=== PATIENT | female | born 1975 | race Caucasian/White ===

== ENCOUNTER 2016-10-06 10:47 | Inpatient (IN) | payer BC, OTHER ==
[2016-10-06 11:46] LABS: Appearance,Urine Cloudy (Clear); Bacteria,Urine Rare /hpf; Basophils % (A) 0 %; Bilirubin,Urine Negative (Negative); CHCM 34.1; Calcium Oxalate Crystals,Urine Many /hpf; Eosinophils # (A) 0.2 k/uL (0-0.7); Eosinophils % (A) 1 %; Glucose,Urine (UA) Negative (Negative); HCT 34.1 % (34.0-46.0); HDW 2.78; HGB 11.5 gm/dL (11.4-16.0); Ketones,Urine Negative (Negative); Leukocyte Esterase,Urine Moderate (Negative); Luc # (Auto) 0.19; Luc % (Auto) 2; Lymphocytes # (A) 2.3 k/uL (1.0-4.8); Lymphocytes % (A) 18 %; MCH 29.9 pg (25.0-35.0); MCHC 33.8 g/dL (31.0-37.0); MCV 88.5 fL (80.0-100.0); Mean Platelet Volume 8.4; Monocytes # (A) 0.8 k/uL (0-1.0); Monocytes % (A) 6 %; Mucus,Urine Rare /hpf; Neutrophils # (A) 9.1 k/uL (1.3-7.7); Neutrophils % (A) 72 %; Nitrite,Urine Negative (Negative); Particle Count 7734; Protein,Urine Trace (Negative); RBC 3.86 m/uL (3.80-5.40); RDW 13.4 % (11.5-15.5); Specific Gravity,Urine 1.012 (1.001-1.035); Squamous Epithelial Cell,Urine 22 /hpf (0-4); UA Billing (MACRO vs. MICRO) MICRO; Urobilinogen,Urine <2.0 mg/dL (<2.0); WBC 12.6 k/uL (3.8-10.6); WBC (Perox) 13.29; WBC,Urine 16 /hpf (0-5)
[2016-10-06 11:52] LABS: Partial Thromboplastin Time 23.7 sec (22.0-30.0); Prothrombin Time 9.9 sec (9.0-12.0)
[2016-10-06 12:01] LABS: ALT 18 U/L (9-52); AST 22 U/L (14-36); LDH 407 U/L (313-618); Non-African American GFR(MDRD) >60 (>60 ml/min/1.73 sqM); Uric Acid 6.2 mg/dL (3.7-7.4)
--- NOTE | 2016-10-06 12:28 | P.HPOB ---
History of Present Illness H&P Date: 10/06/16 Chief Complaint: Hypertension This patient is a pleasant 40-year-old 5 para 4 female estimated date of confinement 10/27/2016 estimated gestational age 37 weeks who presents for evaluation of hypertension. Patient's history is such that she was in the office yesterday afternoon and saw my nurse and had elevated blood pressure 150/ 90. I asked my nurse to call the patient's morning to come in and have this further evaluated. Patient's also had 1+ edema. Blood pressure here's ranges from 130 to 160/70 to 90s. Patient has been seen by maternal medicine throughout the due to a history of previous baby with hydrocephalus. Anatomy ultrasounds this has been normal. Review of Systems Constitutional: Denies chills, Denies fever Ears, nose, mouth and throat: Denies headache, Denies sore throat Cardiovascular: Denies chest pain, Denies shortness of breath Respiratory: Denies cough Gastrointestinal: Reports heartburn Genitourinary: Reports Menstruation: Reports amenorrhea Musculoskeletal: Denies myalgias Musculoskeletal: bilateral: foot swelling Past Medical History Past Medical History: No Reported History History of Any Multi-Drug Resistant Organisms: None Reported Past Surgical History: Section Past Anesthesia/Blood Transfusion Reactions: No Reported Reaction Past Psychological History: No Psychological Hx Reported Smoking Status: Current every day smoker Past Drug Use History: None Reported Medications and Allergies Home Medications Medication Instructions Recorded Confirmed Type Pnv with Ca,No.72/Iron/FA [Pnv 1 tab PO DAILY 06/13/15 06/13/15 History Plus Multivit Tab] Allergies Allergy/AdvReac Type Severity Reaction Status Date / Time No Known Allergies Allergy Verified 10/06/16 11:00 Exam - Vital Signs Vital signs: Intake and Output 10/05/16 10/06/16 10/06/16 22:59 06:59 14:59 Other: Weight 95.708 kg Patient Weight 10/07/16 06:59 Weight 95.708 kg - OBG Physical Exam Abdomen: bowel sounds normal, no diffuse tenderness, no bruit present, no guarding noted, no hepatomegaly, no splenomegaly, no mass Vulva: both: normal Vagina: normal moisture, no discharge Cervix: Cervix is closed and thick Uterus: enlarged Results blood work shows she is oh positive, rubella immune, RPR nonreactive, hepatitis B negative, group B strep was negative other she does have a history of a positive in previous . Ultrasounds per [facility] were normal. Result Diagrams: 10/06/16 11:30 10/06/16 11:30 Abnormal Lab Results - Last 24 Hours (Table) 10/06/16 10/06/16 Range/Units 11:30 11:30 WBC 12.6 H (3.8-10.6) k/uL Neutrophils # 9.1 H (1.3-7.7) k/uL Urine Appearance Cloudy H (Clear) Urine Protein Trace H (Negative) Ur Leukocyte Esterase Moderate H (Negative) Urine WBC 16 H (0-5) /hpf Ur Squamous Epith Cells 22 H (0-4) /hpf Calcium Oxalate Crystal Many H (None) /hpf Urine Bacteria Rare H (None) /hpf Urine Mucus Rare H (None) /hpf Assessment and Plan (1) Third trimester Narrative/Plan: This is a pleasant 40-year-old 5 para 4 female 37-0/7 weeks gestation with gestational hypertension. Patient has had 2 blood pressures greater than 4 hours apart that are criteria for delivery and I have indicated this to her and her . Patient has an unfavorable cervix and is not inducible at this time. I recommended the patient proceed with delivery at this time however she is hesitant and at this time will be admitted for observation and she will make a final decision. If we do proceed with delivery will proceed with repeat due to a noninducible cervix and previous section. Patient understands that if she does elect to go home that unfortunately due to blood pressure concerns she could have a poor outcome. She is agreeable to admission at this time for observation and serial blood pressures. Status: Acute (2) Gestational hypertension Status: Acute (3) Previous delivery affecting Status: Acute (4) Elderly multigravida in third trimester Status: Acute
[2016-10-06] MEDS ORDERED: CITRIC ACID-SODIUM CITRATE 15 ML CUP PO ONE (14:25)
[2016-10-06] MEDS ORDERED: LACTATED RINGERS 1,000 ML IV ONE (14:25)
[2016-10-06] MEDS ORDERED: LACTATED RINGERS 1,000 ML IV SCH (14:30)
[2016-10-06] MEDS ORDERED: ceFAZolin 2 GM in SODIUM CHLORIDE 0.9% 100 ML IVPB ONE (16:30)
[2016-10-06] MEDS ORDERED: diphenhydrAMINE 50 MG/ML 1 ML VIAL ONE (16:36)
[2016-10-06] MEDS ORDERED: OXYTOCIN 10 UNIT/ML 1 ML VIAL IM ONE (16:36)
[2016-10-06] MEDS ORDERED: MORPHINE SULFATE (PF) 0.3 MG/0.3 ML SYR ONE (16:36)
[2016-10-06] MEDS ORDERED: PHENYLEPHRINE-0.9% NACL SYG 1 MG/10 ML SYRINGE ONE (16:36)
[2016-10-06] MEDS ORDERED: KETOROLAC 30 MG/ML 1 ML VIAL ONE (16:36)
[2016-10-06] MEDS ORDERED: ONDANSETRON 4 MG/2 ML VIAL ONE (16:36)
[2016-10-06 17:08] VITALS: RESP 16; BMI 42.6
[2016-10-06] MEDS ORDERED: ACETAMINOPHEN TAB 325 MG TAB PO PRN (17:20)
[2016-10-06] MEDS ORDERED: diphenhydrAMINE 25 MG CAP PO PRN (17:20)
[2016-10-06] MEDS ORDERED: METOCLOPRAMIDE 5 MG/ML 2 ML VIAL IVP PRN (17:20)
[2016-10-06] MEDS ORDERED: NALOXONE 0.4 MG/ML 1 ML VIAL IV PRN (17:20)
[2016-10-06] MEDS ORDERED: ONDANSETRON 4 MG/2 ML VIAL IVP PRN (17:20)
[2016-10-06] MEDS ORDERED: Acetaminophen-Codeine 300-30mg TAB PO PRN ×2 (17:20)
[2016-10-06] MEDS ORDERED: diphenhydrAMINE 50 MG/ML 1 ML VIAL IVP PRN (17:20)
[2016-10-06] MEDS ORDERED: ZOLPIDEM 5 MG TAB PO PRN (17:20)
[2016-10-06] MEDS ORDERED: SIMETHICONE 80 MG CHEWABLE PO PRN (17:20)
--- NOTE | 2016-10-06 17:29 | P.OP ---
Date of Procedure: 10/06/16 Preoperative Diagnosis: #1: 37 weeks intrauterine . #2: Gestational hypertension. #3: Previous section and unfavorable cervix Postoperative Diagnosis: Same Procedure(s) Performed: Repeat low transverse section. Anesthesia: spinal Surgeon: Anil Blair Time Motion Analyst #1: Bety Gaston Estimated Blood Loss (ml): 600 Pathology: other (Placenta) Condition: stable Disposition: floor Indications for Procedure: Please see dictated H&P for intimate details of this patient's admission. In brief summary this is a pleasant 40-year-old 5 para 4 female 37-0/7 weeks gestation who is admitted to labor and delivery for evaluation of hypertension. Patient's felt to have gestational hypertension with criteria for delivery. Patient and I discussed route of delivery and given the fact that her cervix is closed and previous section elected proceed with section for delivery at this time. Patient does understand the surgery and risks including risks of infection, bleeding, possible injury bowel , bladder, vessels, and other organs. All the patient's questions are answered and a written consent is obtained. Operative Findings: Is a vigorous viable female Apgars 9 and 9 delivery time was 1649 hrs. Infant has spontaneous respirations and good cry and grossly appeared normal. Nuchal cord 1. The left side of the lower uterine segment was thin. Description of Procedure: This patient has a Castellano catheter placed to straight drain. She subsequently taken to the operating room and sat up and spinal anesthetic is administered without incident. With an adequate level of anesthesia she has abdominal prep and drape. Previous Pfannenstiel incision is then incised. A second scalpel is taken down the fascia the fascia scored with a knife. Fascial incision extended bilaterally using the Stahl scissors. Fascia is dissected off the rectus muscles sharply. Rectus muscles are peritoneum identified and entered sharply. Peritoneal incision extended superior and inferior without difficulty. Bladder blade is then placed. Bladder peritoneum was taken off the lower uterine segment. Note the lower left side is quite thin for previous section. Using a scalpel I make a low transverse uterine incision. Using a hemostat I into the uterine cavity bluntly and there is loss of clear fluid. This infant's head is then guided through the incision with fundal pressure delivered. We bulb suction the mouth and nose. There is a nuchal cord which is reduced. Then have delivery anterior posterior shoulder and the rest of this infant's body. This is a vigorous viable female and Apgars are 9 and 9 delivery time was 1649 hrs. After delivery of the infant the umbilical cords doubly clamped and cut appears to be trivascular. The placenta is then manually extracted intact. Uterus is then externalized excess membranes were removed and the uterine cavity appears clear of all debris. The uterus is then closed using 0 Vicryl running fashion 2 layers good hemostasis is noted. Excess fluid is removed from the abdomen and pelvis. Uterus tubes and ovaries appear normal for term gestation. Uterus placed back into the abdomen. Parietal peritoneum was then closed using 0 Vicryl running fashion. Rectus muscle reapproximate 0 Vicryl interrupted fashion. Fascia is then closed using 0 PDS. Fascial incision is intact and hemostatic. Subcutaneous tissues and closed using a 3-0 Vicryl. Skin is and closed using pili. All counts are correct 3. There are no complications. All counts are correct 3.
[2016-10-06] MEDS: LACTATED RINGERS 1,000 ML IV SCH (17:49)
[2016-10-06] MEDS ORDERED: KETOROLAC 30 MG/ML 1 ML VIAL IVP PRN (18:00)
[2016-10-07] MEDS: OXYTOCIN 30 UNITS/500 ML NS 30 UNIT in SALINE 1 500ML.BAG IV SCH ×2 (00:07→00:08)
[2016-10-07] MEDS: SENNOSIDES-DOCUSATE SODIUM 1 EACH TAB PO SCH ×3 (00:08→21:36)
--- NOTE | 2016-10-07 05:34 | P.PNOBGPC ---
Subjective - Subjective Patient reports: Reports appetite normal, Reports voiding normally, Reports pain well controlled, Reports ambulating normally : doing well Objective - Vital Signs Latest vital signs: Vital Signs Temp Pulse Resp BP Pulse Ox 10/07/16 04:00 98.0 F 81 16 120/63 97 10/07/16 00:00 97.2 F L 93 16 124/76 98 10/06/16 19:18 98.0 F 92 16 143/79 100 10/06/16 18:49 93 16 146/82 100 10/06/16 18:19 87 16 135/80 10/06/16 18:04 90 16 123/62 100 10/06/16 17:49 84 16 119/59 100 10/06/16 17:34 85 16 129/74 98 10/06/16 17:19 97.7 F 94 16 133/56 100 10/06/16 14:00 97.6 F 105 H 16 162/78 Intake and Output 10/06/16 10/06/16 10/07/16 14:59 22:59 06:59 Output Total 100 500 Balance -100 -500 Output: Urine 100 500 Uretheral (Castellano) 500 Other: Weight 95.708 kg Patient Weight 10/07/16 06:59 Weight 95.708 kg - Exam Lungs: bilateral: normal Chest: Normal S1, Normal S2 Extremities: Present: normal Abdomen: Present: normal appearance, soft. Absent: distention, tenderness Incision: Present: normal, dry, intact Uterus: Present: normal, firm - Labs Labs: Abnormal Lab Results - Last 24 Hours (Table) 10/06/16 10/06/16 Range/Units 11:30 11:30 WBC 12.6 H (3.8-10.6) k/uL Neutrophils # 9.1 H (1.3-7.7) k/uL Urine Appearance Cloudy H (Clear) Urine Protein Trace H (Negative) Ur Leukocyte Esterase Moderate H (Negative) Urine WBC 16 H (0-5) /hpf Ur Squamous Epith Cells 22 H (0-4) /hpf Calcium Oxalate Crystal Many H (None) /hpf Urine Bacteria Rare H (None) /hpf Urine Mucus Rare H (None) /hpf Assessment and Plan (1) Third trimester Narrative/Plan: Postoperative day #1. Patient is resting without complaints. Vital signs are stable she's afebrile. Uterus is firm nontender and her incision is intact and dry. Hemoglobin is pending at time of this dictation. My impression this is a normal post operative course. Plan is to check a CBC, encouraged patient to ambulate, advance her diet, and continue routine postoperative care. Current Visit: Yes Status: Acute Code(s): Z33.1 - STATE, INCIDENTAL SNOMED Code(s): 75607754 (2) Gestational hypertension Current Visit: Yes Status: Acute Code(s): O13.9 - GESTATIONAL HTN W/O SIGNIFICANT PROTEINURIA, UNSP TRIMESTER SNOMED Code(s): 14604261 (3) Previous delivery affecting Current Visit: Yes Status: Acute Code(s): O34.219 - MATERNAL CARE FOR UNSP TYPE SCAR FROM PREVIOUS DEL SNOMED Code(s): 917953200 (4) Elderly multigravida in third trimester Current Visit: Yes Status: Acute Code(s): O09.523 - SUPERVISION OF ELDERLY MULTIGRAVIDA, THIRD TRIMESTER SNOMED Code(s): 548701313
[2016-10-07 05:40] LABS: Basophils # (A) 0.1 k/uL (0-0.2); Basophils % (A) 0 %; CH 30.3; CHCM 34.5; Eosinophils # (A) 0.2 k/uL (0-0.7); Eosinophils % (A) 1 %; HCT 30.7 % (34.0-46.0); HDW 2.76; HGB 10.2 gm/dL (11.4-16.0); Luc # (Auto) 0.22; Luc % (Auto) 2; Lymphocytes # (A) 2.3 k/uL (1.0-4.8); Lymphocytes % (A) 18 %; MCH 29.4 pg (25.0-35.0); MCHC 33.2 g/dL (31.0-37.0); MCV 88.5 fL (80.0-100.0); Monocytes # (A) 0.9 k/uL (0-1.0); Monocytes % (A) 7 %; Neutrophils # (A) 9.2 k/uL (1.3-7.7); Neutrophils % (A) 72 %; RBC 3.47 m/uL (3.80-5.40); RDW 13.6 % (11.5-15.5); WBC 12.8 k/uL (3.8-10.6); WBC (Perox) 12.62
--- NOTE | 2016-10-07 09:57 | P.PN ---
Progress Note - Text Date:10/08 Time:711 Patient is status post . Patient seen this morning with VAS score of 1. c/o of pruritus, no c/o nausea/vomiting, comfortable and doing well.
[2016-10-07] MEDS: IBUPROFEN 600 MG TAB PO PRN (21:34)
[2016-10-08] MEDS: LACTATED RINGERS 1,000 ML IV SCH ×2 (00:42→00:43)
[2016-10-08] MEDS: OXYTOCIN 30 UNITS/500 ML NS 30 UNIT in SALINE 1 500ML.BAG IV SCH ×2 (00:44→00:45)
[2016-10-08] MEDS: IBUPROFEN 600 MG TAB PO PRN ×2 (03:57→11:44)
--- NOTE | 2016-10-08 07:58 | P.PNOBGPC ---
Subjective - Subjective Patient reports: Reports appetite normal, Reports voiding normally, Reports pain well controlled, Reports ambulating normally : doing well Objective - Vital Signs Latest vital signs: Vital Signs Temp Pulse Resp BP Pulse Ox 10/08/16 00:00 98.0 F 80 16 148/87 10/07/16 16:00 98.2 F 85 16 132/80 10/07/16 12:00 98.1 F 88 16 125/70 95 10/07/16 08:00 98.2 F 84 16 118/72 95 Intake and Output 10/07/16 10/08/16 10/08/16 22:59 06:59 14:59 Other: # Voids 1 2 - Exam Lungs: bilateral: normal Chest: Normal S1, Normal S2 Extremities: Present: normal Abdomen: Present: normal appearance, soft. Absent: distention, tenderness Incision: Present: normal, dry, intact Uterus: Present: normal, firm Assessment and Plan (1) Third trimester Narrative/Plan: Postoperative day #2. Patient is resting without complaints and wishes to go home. Vital signs are stable and she is afebrile. Uterus is firm nontender and she is having normal lochia. Incision is intact and dry. Blood pressures are normal. My impression is a normal postoperative course. Patient appears to be stable for discharge home. Plan will be to continue routine care today and discharge home later. Current Visit: Yes Status: Acute Code(s): Z33.1 - STATE, INCIDENTAL SNOMED Code(s): 24727645 (2) Gestational hypertension Current Visit: Yes Status: Acute Code(s): O13.9 - GESTATIONAL HTN W/O SIGNIFICANT PROTEINURIA, UNSP TRIMESTER SNOMED Code(s): 88838316 (3) Previous delivery affecting Current Visit: Yes Status: Acute Code(s): O34.219 - MATERNAL CARE FOR UNSP TYPE SCAR FROM PREVIOUS DEL SNOMED Code(s): 423890786 (4) Elderly multigravida in third trimester Current Visit: Yes Status: Acute Code(s): O09.523 - SUPERVISION OF ELDERLY MULTIGRAVIDA, THIRD TRIMESTER SNOMED Code(s): 290428046
--- NOTE | 2016-10-08 08:07 | P.DS ---
Providers Date of admission: 10/06/16 14:45 Expected date of discharge: 10/08/16 Attending physician: Anil Blair Primary care physician: Stated None - Discharge Diagnosis(es) (1) Third trimester Current Visit: Yes Status: Acute (2) Gestational hypertension Current Visit: Yes Status: Acute (3) Previous delivery affecting Current Visit: Yes Status: Acute (4) Elderly multigravida in third trimester Current Visit: Yes Status: Acute Hospital Course: Please see dictated H&P for intimate details of this patient's admission. Brief summary this is a pleasant 40-year-old 5 para 4 female admitted for gestational hypertension. Patient subsequently underwent a repeat low transverse section for viable female . On postoperative day #2 patient's felt be stable for discharge home follow up with me in 1 week for an incision check. Procedures: Repeat low transverse section Patient Condition at Discharge: Good Plan - Discharge Summary Discharge Medication List Pnv with Ca,No.72/Iron/FA [Pnv Plus Multivit Tab] 1 tab PO DAILY [History] Follow up Appointment(s)/Referral(s): Anil Blair MD [STAFF PHYSICIAN] - 10/18/16 8:45 am (Patient also has a post operative check on November 10 at 9:45 AM.) Patient Instructions/Handouts: (DC) Activity/Diet/Wound Care/Special Instructions: No strenuous activity or heavy lifting for 6 weeks. No intercourse for 6 weeks. Please call if any fever, chills, excessive vaginal bleeding, and/or abdominal pain. Discharge Disposition: HOME SELF-CARE
[2016-10-08 08:35] VITALS: BP 141/76; PULSE 83; TEMP 97.8
[2016-10-08] MEDS: SENNOSIDES-DOCUSATE SODIUM 1 EACH TAB PO SCH (10:30)
== END 2016-10-08 11:45 | disposition home or self-care (01) | DRG 766 ==
LOC: FBPOP 10:47 → UNDOADMOB 12:16 → 4FBP 12:16 → OBSVTOIN 14:45 → 4FBP 14:45
PROVIDERS: ADMIT Obstetrics & Gynecology; ATTEND Obstetrics & Gynecology
PROC: 10D00Z1 Extraction of Products of Conception, Low, Open Approach (ICD-10-PCS; principal; 2016-10-06 16:30)
DX: O13.4 Gestational [pregnancy-induced] hypertension without significant proteinuria, complicating childbirth (principal); O69.81X0 Labor and delivery complicated by cord around neck, without compression, not applicable or unspecified; O99.334 Smoking (tobacco) complicating childbirth; F17.200 Nicotine dependence, unspecified, uncomplicated; Z37.0 Single live birth; O34.211 Maternal care for low transverse scar from previous cesarean delivery; N85.8 Other specified noninflammatory disorders of uterus; Z3A.37 37 weeks gestation of pregnancy; Z79.899 Other long term (current) drug therapy
CPT/HCPCS: 59025; 81001; 82565; 83615; 84450; 84460; 84550; 85025; 85610; 85730; 86850; 86900; 86901; 88307; 99215

== ENCOUNTER → 2018-02-21 | Outpatient (CLI) | payer OTHER | END | disposition home or self-care (01) | LOC: LABWHC1 13:54 | PROVIDERS: ATTEND Obstetrics & Gynecology | DX: Z34.90 Encounter for supervision of normal pregnancy, unspecified, unspecified trimester (principal); Z3A.00 Weeks of gestation of pregnancy not specified | CPT/HCPCS: 36415; 82950 ==

== ENCOUNTER 2018-05-15 10:11 | Inpatient (IN) | payer OTHER ==
[2018-05-09 15:07] VITALS: BMI 46.0
[2018-05-15] MEDS ORDERED: CITRIC ACID-SODIUM CITRATE 15 ML CUP PO ONE (10:25)
[2018-05-15] MEDS ORDERED: ceFAZolin IN SWFI 2 GM/20 ML SYRINGE IVP ONE (10:25)
[2018-05-15] MEDS ORDERED: LACTATED RINGERS 1,000 ML IV ONE (10:25)
[2018-05-15 10:56] LABS: Basophils % (A) 0 %; Eosinophils # (A) 0.2 k/uL (0-0.7); Eosinophils % (A) 2 %; HCT 36.4 % (34.0-46.0); HGB 12.1 gm/dL (11.4-16.0); Lymphocytes # (A) 1.9 k/uL (1.0-4.8); Lymphocytes % (A) 17 %; MCH 28.7 pg (25.0-35.0); MCHC 33.2 g/dL (31.0-37.0); MCV 86.4 fL (80.0-100.0); Mean Platelet Volume 7.3; Monocytes # (A) 0.6 k/uL (0-1.0); Monocytes % (A) 5 %; Neutrophils # (A) 8.7 k/uL (1.3-7.7); Neutrophils % (A) 75 %; Platelet Count 296 k/uL (150-450); RBC 4.21 m/uL (3.80-5.40); RDW 14.2 % (11.5-15.5); WBC 11.7 k/uL (3.8-10.6)
--- NOTE | 2018-05-15 12:02 | P.HPOB ---
History of Present Illness H&P Date: 05/15/18 Chief Complaint: 39 weeks gestation, 2 previous sections, declining This is a 42-year-old white female 6 para 5005 status post 2 sections in the past, at 39 weeks gestation with EDC of 05/22/2018. She presents today for repeat low transverse section. She has been counseled thoroughly but is declining the option for tubal ligation. Fetus is been active throughout the . She denies vaginal bleeding, fluid leakage or uterine contractions at this time. Past medical history is negative. Past surgical history 2016, repeat 2017. Current medications vitamins daily. ALLERGIES none known. Family history significant for hydrocephalus in her son the os requiring section in 2016 at [facility]. Social history patient is single, she is a former tobacco smoker of one half pack per day, she denies alcohol or drug use. history is significant for blood type O+, rubella status immune. Pap smear, gonorrhea and chlamydia cultures, urine culture, hepatitis B surface antigen, HIV testing, group B strep cultures all negative. One-hour Glucola 1: 15. Rubella status immune. On exam this is a pleasant white female who is 5 foot 1 inch, 235 pounds, vital signs are stable and she is afebrile. The general physical exam is within normal limits. The chest is clear in all funes. The extremities reveal no edema. Cervix is closed, posterior, long. heart rate is consistent with reactive NST. Fundal height is 40 cm. Impression: 39 week intrauterine , here for repeat low transverse section. Advanced maternal age. Declining option for tubal ligation. Plan: Antibiotics are given. We will proceed with low transverse section. All risks benefits and alternatives have been discussed with the patient in detail. Review of Systems Constitutional: Reports as per HPI Past Medical History Past Medical History: No Reported History History of Any Multi-Drug Resistant Organisms: None Reported Past Surgical History: Section Additional Past Surgical History / Comment(s): C-SEC X 2 Past Anesthesia/Blood Transfusion Reactions: Postoperative Nausea & Vomiting ( PONV) Past Psychological History: No Psychological Hx Reported Smoking Status: Former smoker Past Alcohol Use History: None Reported Additional Past Alcohol Use History / Comment(s): QUIT SMOKING 07/2017 Past Drug Use History: None Reported - Past Family History Son(s) Additional Family Medical History / Comment(s): hydrocephalus Medications and Allergies Home Medications Medication Instructions Recorded Confirmed Type Pnv,Calcium 72/Iron/Folic Acid 1 tab PO DAILY 06/13/15 05/15/18 History [Pnv Plus Multivit Tab] Allergies Allergy/AdvReac Type Severity Reaction Status Date / Time No Known Allergies Allergy Verified 05/15/18 10:27 Exam Vital Signs Temp Pulse Resp BP Pulse Ox 05/15/18 10:25 97.2 F L 91 18 127/75 97 Intake and Output 05/14/18 05/15/18 05/15/18 22:59 06:59 14:59 Other: Weight 103.419 kg See dictation under HPI please Results Result Diagrams: 05/15/18 10:44 Abnormal Lab Results - Last 24 Hours (Table) 05/15/18 Range/Units 10:44 WBC 11.7 H (3.8-10.6) k/uL Neutrophils # 8.7 H (1.3-7.7) k/uL Assessment and Plan Assessment: 39 week intrauterine , 2 previous sections, advanced maternal age, declining option for , declining option for tubal ligation. Plan: We will proceed with repeat low transverse section. Antibiotic prophylaxis per hospital protocol. All risks and benefits of this plan discussed in detail. All questions answered. Time with Patient: Less than 30
[2018-05-15] MEDS ORDERED: OXYTOCIN 10 UNIT/ML 1 ML VIAL ONE (12:06)
[2018-05-15] MEDS ORDERED: KETOROLAC 30 MG/ML 1 ML VIAL ONE (12:06)
[2018-05-15] MEDS ORDERED: ePHEDrine SULFATE/0.9% NACL/PF 50 MG/5 ML SYRINGE IV ONE (12:06)
[2018-05-15] MEDS ORDERED: PHENYLEPHRINE-0.9% NACL SYG 1 MG/10 ML SYRINGE ONE (12:06)
[2018-05-15] MEDS ORDERED: MORPHINE SULFATE (PF) 0.3 MG/0.3 ML SYR ONE (12:06)
[2018-05-15] MEDS ORDERED: ONDANSETRON 4 MG/2 ML VIAL ONE (12:06)
[2018-05-15] MEDS ORDERED: NALBUPHINE 10 MG/ML VIAL (10ML MDV) IV PRN (12:38)
[2018-05-15] MEDS ORDERED: NALOXONE 0.4 MG/ML 1 ML VIAL IV PRN ×2 (12:38→13:00)
[2018-05-15] MEDS ORDERED: PROMETHAZINE INJ 6.25 MG in SODIUM CHLORIDE 0.9% 50 ML IVPB PRN (12:38)
[2018-05-15] MEDS ORDERED: HYDROmorphone 1 MG/ML 1 ML SYRINGE IVP PRN (12:38)
[2018-05-15] MEDS ORDERED: ONDANSETRON 4 MG/2 ML VIAL IVP PRN ×2 (12:38→13:00)
[2018-05-15] MEDS ORDERED: diphenhydrAMINE 50 MG CAP PO PRN (13:00)
[2018-05-15] MEDS ORDERED: ACETAMINOPHEN TAB 325 MG TAB PO PRN (13:00)
[2018-05-15] MEDS ORDERED: SIMETHICONE 80 MG CHEWABLE PO PRN (13:00)
[2018-05-15] MEDS ORDERED: diphenhydrAMINE 50 MG/ML 1 ML VIAL IVP PRN ×2 (13:00)
[2018-05-15] MEDS ORDERED: ZOLPIDEM 5 MG TAB PO PRN (13:00)
[2018-05-15] MEDS ORDERED: METOCLOPRAMIDE 5 MG/ML 2 ML VIAL IVP PRN (13:00)
[2018-05-15] MEDS ORDERED: diphenhydrAMINE 25 MG CAP PO PRN (13:00)
[2018-05-15] MEDS ORDERED: KETOROLAC 30 MG/ML 1 ML VIAL IVP PRN (13:00)
--- NOTE | 2018-05-15 13:00 | P.OP ---
Date of Procedure: 05/15/18 Preoperative Diagnosis: 39 week intrauterine , advanced maternal age, 2 previous C-sections, declining , declining tubal ligation Postoperative Diagnosis: Liveborn female infant, normal-appearing tubes and ovaries, extremely thin lower uterine segment Procedure(s) Performed: Repeat low transverse section, reinforcement lower uterine segment Anesthesia: spinal Surgeon: Marnie Manning Host #1: Yanet Berry Estimated Blood Loss (ml): 600 IV fluids (ml): 1,000 Urine output (ml): 300 Pathology: none sent Condition: stable Disposition: PACU Operative Findings: Liveborn female , 7 lbs. 10 oz., 3450 g, normal-appearing tubes and ovaries bilaterally, extremely thin lower uterine segment Description of Procedure: Patient is brought to the operating suite where a spinal analgesia is administered. She's placed in the dorsal supine position. Castellano catheter has been placed to direct drainage, antibiotics given. The abdomen is prepped and draped in usual sterile fashion. The appropriate timeout is performed to assure proper patient and procedural identification. Analgesia is checked and noted to be adequate. A repeat low transverse skin incision is made. This is carried down through the subcutaneous tissue to the fascia. Fascia is isolated, scored and extended bilaterally with curved Stahl scissors. Peritoneum is next identified and incised, there is no bowel or bladder involvement. The bladder blade is placed over the dome of the bladder. The bladder is taken down with Metzenbaum scissors and at all times Well from the operative field to avoid bladder and/or ureteral injury. A repeat low transverse uterine incision is made. The lower uterine segment is extremely thin, a window is noted in the left aspect. Artificial amniorrhexis reveals clear fluid. Infant is delivered in the occiput anterior position. The oropharynx, nasopharynx, and external nares are bulb suctioned on the abdomen. Patient is officially delivered of a liveborn female at 1227 hours. Umbilical cord is doubly clamped and ligated, she is handed to waiting nurses for evaluation where scores of 9 and 9 at one and 5 minutes respectively are given. Placenta is delivered manually, it is inspected and noted to be intact with trivascular cord at 1228 hours. Uterus is then externalized and massaged. Oxytocin is given. Uterus is swept clean with a sterile sponge to avoid any retained products of conception. The edges of the uterine incision are grasped with Limon clamps. The uterus is closed in a two-step fashion, first layer running locking, second layer imbricated. Despite this, there is still a window noted in the lower uterine segment that is reinforced with 2 figure-of- eight sutures for good reapproximation. The abdomen is then suctioned with suction on guard. The uterus is gently placed back into the abdominal cavity. Bilateral tubes and ovaries are noted to be normal. No other uterine defects or anomalies are noted. Bilateral gutters are inspected and cleaned. Uterine incision is once again inspected and noted to be well approximated, clean and dry, hemostatically intact. The fascia is closed in a running layer of 0 Vicryl suture. Peritoneum was allowed to close by secondary intention. Subcutaneous tissue was generously irrigated, inspected, noted to be clean and dry. It is reapproximated with 3-0 Vicryl suture. Wide pili are used for final skin closure. Total estimated blood loss 600 mL 's. All sponge needle and enhancement counts are correct at the end of the procedure. Infant weighs 3450 g or 7 lbs. 10 oz. Patient is brought back to the recovery room in very good condition with stable vital signs including a blood pressure 112/62, pulse 82. Competitions none. Patient is advised that future pregnancies are not in her best interest secondary to very thin lower uterine segment and window.
[2018-05-15] MEDS: LACTATED RINGERS 1,000 ML IV SCH (14:38)
[2018-05-15] MEDS: SENNOSIDES-DOCUSATE SODIUM 1 EACH TAB PO SCH (21:16)
[2018-05-16] MEDS: LACTATED RINGERS 1,000 ML IV SCH ×2 (01:11→06:06)
--- NOTE | 2018-05-16 05:50 | P.PN ---
Progress Note - Text Progress Note Date: 05/16/18 42 yo female status post . Post-op day #1. Patient received intrathecal Duramorph. Patient was seen today, sitting up in bed no complaints, pain VAS score 0/10, no headache, no itching, no nausea and vomiting. Assessment and plan: Doing well in general no complications from anesthesia.
--- NOTE | 2018-05-16 07:36 | P.PN ---
Subjective Progress Note Date: 05/16/18 Principal diagnosis: Postoperative day #1 Slept well. Pain well tolerated. Positive flatus Objective - Vital Signs Vital signs: Vital Signs Temp 97.7 F 05/16/18 04:00 Pulse 95 05/16/18 04:00 Resp 18 05/16/18 06:04 BP 130/74 05/16/18 04:00 Pulse Ox 96 05/16/18 04:00 Intake & Output 05/15/18 05/16/18 05/16/18 18:59 06:59 18:59 Intake Total 1080 Output Total 600 2200 Balance 480 -2200 Weight 103.419 kg Intake: Intake, IV Titration 1000 Amount Lactated Ringers 1,000 ml 1000 @ 125 mls/hr IV .Q8H DREW Rx#:[id number] Oral 80 Output: Urine 2200 Estimated Blood Loss 600 Other: # Voids 1 - Constitutional General appearance: Present: average body habitus, cooperative - EENT Eyes: Present: PERRLA ENT: Present: hearing grossly normal - Respiratory Respiratory: bilateral: CTA - Cardiovascular Rhythm: regular - Gastrointestinal General gastrointestinal: Present: normal bowel sounds - Genitourinary Genitourinary Comment(s): Incision clean and dry, intact. Fundus firm, midline, symmetric, 18 week size - Integumentary Integumentary: Present: normal turgor - Neurologic Neurologic: Present: CNII-XII intact - Musculoskeletal Musculoskeletal: Present: gait normal, strength equal bilaterally - Psychiatric Psychiatric: Present: A&O x's 3, appropriate affect, intact judgment & insight - Labs CBC & Chem 7: 05/15/18 10:44 Labs: Abnormal Lab Results - Last 24 Hours (Table) 05/15/18 Range/Units 10:44 WBC 11.7 H (3.8-10.6) k/uL Neutrophils # 8.7 H (1.3-7.7) k/uL Assessment and Plan Assessment: Postoperative day #1, doing well. Plan: Continue postoperative care. Advanced diet and activity. Likely discharge home tomorrow. Time with Patient: Less than 30
[2018-05-16] MEDS: SENNOSIDES-DOCUSATE SODIUM 1 EACH TAB PO SCH ×2 (09:34→22:14)
[2018-05-16 10:34] LABS: Basophils % (A) 0 %; Eosinophils # (A) 0.1 k/uL (0-0.7); Eosinophils % (A) 1 %; HCT 33.8 % (34.0-46.0); HGB 11.3 gm/dL (11.4-16.0); Lymphocytes # (A) 1.8 k/uL (1.0-4.8); Lymphocytes % (A) 13 %; MCH 28.9 pg (25.0-35.0); MCHC 33.4 g/dL (31.0-37.0); MCV 86.5 fL (80.0-100.0); Mean Platelet Volume 7.9; Monocytes # (A) 0.8 k/uL (0-1.0); Monocytes % (A) 5 %; Neutrophils # (A) 11.6 k/uL (1.3-7.7); Neutrophils % (A) 81 %; Platelet Count 259 k/uL (150-450); RBC 3.91 m/uL (3.80-5.40); RDW 14.1 % (11.5-15.5); WBC 14.4 k/uL (3.8-10.6)
[2018-05-16] MEDS: IBUPROFEN 600 MG TAB PO PRN ×3 (11:22→23:20)
[2018-05-17] MEDS: HYDROcodone/APAP 5-325MG 1 EACH TAB PO PRN ×2 (03:58→09:07)
--- NOTE | 2018-05-17 07:33 | P.DS ---
Providers Date of admission: 05/15/18 10:11 Expected date of discharge: 05/17/18 Attending physician: Marnie Manning Primary care physician: Stated None Hospital Course: This is a 42-year-old white female 6 para 5005 EDC 05/22/2018 at 39 weeks gestation. Patient has had 2 previous sections, and is electing repeat section at this time. She has been counseled thoroughly but is declining the option for tubal ligation. is essentially unremarkable , blood type O+, rubella status immune, group B strep cultures negative. Please see dictated history and physical for details. A she was admitted and underwent a repeat low transverse section, giving to a liveborn female infant with scores of 9 and 9 at one and 5 minutes respectively. weighed 7 lbs. 10 oz. or 3450 g. The surgery was remarkable for an extremely thin lower uterine segment with a window. This was reinforced at the time of surgery, normal-appearing tubes and ovaries. Please see dictated operative note for details. Estimated blood loss 600 mL's. This morning the patient is doing well. She is voiding, ambulating and passing flatus without difficulty. Vital signs are stable and she is afebrile. Fundus is firm and in the midline, symmetric and 18 week size. Extremities are negative for edema. Breasts are not engorged. Incision is clean and dry, well approximated, ipli applied. Pili will be removed and Steri-Strips applied prior to discharge. Patient is judged to be in very good condition for discharge home. She will follow-up with me in the office in 2 weeks for an incision check. I have reminded her no intercourse, tampons or douching. She is advised that the lower uterine segment is extremely thin, and I do not recommend repeat . She and her will contemplate her options for contraception and we will discuss this further. She will continue taking vitamins daily. She will use [id number] Advil or Aleve as needed for pain. She will call me with any fevers shakes or chills, foul smelling or copious lochia, with any pain not alleviated by [id number] products, with any issues breast-feeding, or indeed with any concerns. Patient Condition at Discharge: Good Plan - Discharge Summary Discharge Rx Participant: No New Discharge Prescriptions: No Action Pnv,Calcium 72/Iron/Folic Acid [Pnv Plus Multivit Tab] 1 tab PO DAILY Discharge Medication List Pnv,Calcium 72/Iron/Folic Acid [Pnv Plus Multivit Tab] 1 tab PO DAILY 06/13/15 [History] Follow up Appointment(s)/Referral(s): Marnie Manning MD [STAFF PHYSICIAN] - 2 Weeks Discharge Disposition: HOME SELF-CARE
[2018-05-17] MEDS: SENNOSIDES-DOCUSATE SODIUM 1 EACH TAB PO SCH (07:40)
[2018-05-17 08:59] VITALS: BP 142/88; PULSE 83; RESP 18; TEMP 97.7
== END 2018-05-17 09:20 | disposition home or self-care (01) | DRG 788 ==
LOC: 4FBP 10:11
PROVIDERS: ADMIT Obstetrics & Gynecology; ATTEND Obstetrics & Gynecology
PROC: 10D00Z1 Extraction of Products of Conception, Low, Open Approach (ICD-10-PCS; principal; 2018-05-15 12:22)
DX: O34.211 Maternal care for low transverse scar from previous cesarean delivery (principal); Z37.0 Single live birth; Z3A.39 39 weeks gestation of pregnancy; Z87.891 Personal history of nicotine dependence
CPT/HCPCS: 85025; 86850; 86900; 86901

== ENCOUNTER → 2018-11-07 | Outpatient (CLI) | payer OTHER ==
[2018-11-07 13:15] LABS: HGB 12.6 gm/dL (11.4-16.0); Hypochromasia Slight; MCHC 31.4 g/dL (31.0-37.0); MCV 85.7 fL (80.0-100.0); Mean Platelet Volume 7.2; Platelet Count 463 k/uL (150-450); RBC 4.67 m/uL (3.80-5.40); RDW 14.1 % (11.5-15.5); WBC 9.6 k/uL (3.8-10.6)
== END | disposition home or self-care (01) ==
LOC: LABPAT 12:29
PROVIDERS: ATTEND Anesthesiology
DX: Z01.812 Encounter for preprocedural laboratory examination (principal); K42.0 Umbilical hernia with obstruction, without gangrene
CPT/HCPCS: 36415; 85027

== ENCOUNTER 2018-11-14 09:16 | Inpatient (IN) | payer OTHER ==
[~2018-11-14 09:16] MED LIST: DEXAMETHASONE SOD PHOSPHATE 10 MG/ML 1 ML VIAL IV ONE; LIDOCAINE 1% 20 ML VIAL (10MG/ML) FOR IV START INTRADERMA PRN; MIDAZOLAM 2 MG/2 ML VIAL IV PRN; ONDANSETRON 4 MG/2 ML VIAL IVP ONE; ONDANSETRON 4 MG/2 ML VIAL IVP PRN; ceFAZolin IN SWFI 2 GM/20 ML SYRINGE IVP ONE; fentaNYL (PF) 50 MCG/ML 2 ML AMP IVP PRN
--- NOTE | 2018-11-14 09:30 | P.GSHP ---
History of Present Illness H&P Date: 11/14/18 Chief Complaint: Incarcerated umbilical hernia Patient was seen in the office in September. Patient has complaints of a bulge below the umbilicus. Increasing in size. Has had pain since Thanksgiving. No nausea or vomiting. No change in bowel habits. Past Medical History Past Medical History: No Reported History Additional Past Medical History / Comment(s): UMBILICAL HERNIA History of Any Multi-Drug Resistant Organisms: None Reported Past Surgical History: Section Additional Past Surgical History / Comment(s): C-SEC X 3 Past Anesthesia/Blood Transfusion Reactions: No Reported Reaction Smoking Status: Former smoker - Past Family History Son(s) Additional Family Medical History / Comment(s): hydrocephalus Medications and Allergies Home Medications Medication Instructions Recorded Confirmed Type Pnv,Calcium 72/Iron/Folic Acid 1 tab PO DAILY 06/13/15 11/06/18 History [Pnv Plus Multivit Tab] Allergies Allergy/AdvReac Type Severity Reaction Status Date / Time No Known Allergies Allergy Verified 11/06/18 10:08 Surgical - Exam Physical exam: General: Well-developed, well-nourished HEENT: Normocephalic, sclerae nonicteric Abdomen: Nontender, nondistended, partially reducible umbilical hernia moderate sized Extremities: No edema Neuro: Alert and oriented Assessment and Plan (1) Umbilical hernia, incarcerated Narrative/Plan: Will proceed with operative repair with mesh at this time. Risks of bleeding, infection, recurrence, bladder and bowel injury, numbness, nerve injury were discussed with the patient. The patient understands and wishes to proceed. Current Visit: Yes Status: Acute Code(s): K42.0 - UMBILICAL HERNIA WITH OBSTRUCTION, WITHOUT GANGRENE SNOMED Code(s): 644527520
[2018-11-14] MEDS: LACTATED RINGERS 1,000 ML IV SCH (10:01)
[2018-11-14] MEDS ORDERED: fentaNYL (PF) 50 MCG/ML 2 ML AMP ONE (10:04)
[2018-11-14] MEDS ORDERED: MIDAZOLAM 2 MG/2 ML VIAL ONE (10:04)
[2018-11-14] MEDS ORDERED: PROPOFOL 10 MG/ML 20 ML VIAL IV ONE (10:04)
[2018-11-14] MEDS ORDERED: ROCURONIUM BROMIDE 10 MG/ML 10 ML VIAL IV ONE (10:04)
[2018-11-14] MEDS ORDERED: HYDROmorphone (PF) 1 MG/ML ONE (10:04)
[2018-11-14] MEDS ORDERED: GLYCOPYRROLATE 0.2 MG/ML 2 ML VIAL ONE (10:04)
[2018-11-14] MEDS ORDERED: NEOSTIGMINE 1 MG/ML 10 ML VIAL ONE (10:04)
[2018-11-14] MEDS ORDERED: KETOROLAC 30 MG/ML 1 ML VIAL ONE (10:04)
[2018-11-14] MEDS ORDERED: SUCCINYLCHOLINE CHLORIDE 100 MG/5 ML SYR IV ONE (10:04)
[2018-11-14] MEDS ORDERED: HEPARIN SODIUM,PORCINE 5,000 UNIT/ML 1 ML VIAL SQ ONE (10:09)
[2018-11-14] MEDS ORDERED: BUPIVACAIN-EPI 0.5%-1:200,000 30 ML VIAL SQ ONE ×2 (10:11→10:36)
[2018-11-14] MEDS ORDERED: LACTATED RINGERS 1,000 ML IV ONE (11:36)
[2018-11-14] MEDS: HYDROmorphone 0.5 MG/0.5 ML SYRINGE IVP PRN ×2 (12:13→12:38)
[2018-11-14] MEDS ORDERED: NALOXONE 0.4 MG/ML 1 ML VIAL IV PRN (12:26)
[2018-11-14] MEDS ORDERED: ONDANSETRON 4 MG/2 ML VIAL IVP PRN (12:26)
--- NOTE | 2018-11-14 12:33 | P.OP ---
Date of Procedure: 11/14/18 Procedure(s) Performed: PREOPERATIVE DIAGNOSIS: Incarcerated umbilical hernia POSTOPERATIVE DIAGNOSIS: Incarcerated ventral hernia with small bowel mass and mesenteric nodules PROCEDURE: Repair incarcerated ventral hernia, small bowel resection, biopsy of mesenteric nodule 2 SURGEON: Nette EBL: Minimal ANESTHESIA: General COMPLICATIONS: None OPERATIVE PROCEDURE: Patient placed in the operating table in the supine position. The patient was placed under general anesthesia. A midline incision was made below the umbilicus. Dissection through the saphenous fat took place using cautery. The patient's large hernia sac was identified. This was carefully dissected to the level of the fascia. The defect in the fascia measured 4.5 x 2.5 cm. The hernia sac was excised and sent to pathology. The small bowel that happened to be within the hernia sac was not adherent to the sac. As I inspected the bowel however I noticed immediately that there was a nodular mass involving the small bowel that was appearing to create a slight degree of obstruction. As I inspected the distal and proximal bowel I u nfortunately identified multiple small indurated nodules on the mesentery of the small bowel. 2 of these were excised sharply and sent to pathology. The etiology was unclear at this point. I did decide to proceed with a resection of the segment of bowel that was initially identified as I anticipated this would become more obstructed over time. The bowel was divided proximal and distal to the nodular mass using a linear 75 stapler. The mesentery was divided using the LigaSure device. The antimesenteric portion of the staple line was excised. The linear stapler was fired along the antimesenteric border of the 2 sections of small bowel. The remaining defect was closed using a TX 60 device. The TX 60 stapler line was imbricated using 3-0 GI silk sutures. The mesentery was closed using 3-0 GI silk sutures. A 3-0 GI silk crotch stitch was placed. I decided not to place a mesh given the contamination related with the bowel surgery. The fascia was reapproximated horizontally using [id number] 0 Ethibond sutures. The subcutaneous tissues were closed using 3-0 Vicryl sutures. The skin was closed using a running 4-0 Monocryl stitch. Skin glue and sterile dressings were applied. DISPOSITION: Stable to recovery room
[2018-11-14] MEDS: KETOROLAC 30 MG/ML 1 ML VIAL IVP SCH ×4 (12:38→23:32)
[2018-11-14] MEDS: HYDROmorphone 1 MG/ML 1 ML SYRINGE IVP PRN ×2 (16:07→22:44)
[2018-11-14] MEDS: D5-0.45% NACL WITH KCL 20MEQ/L 1,000 ML IV SCH (16:08)
[2018-11-14 16:25] VITALS: BMI 47.0
[2018-11-14] MEDS: HEPARIN SODIUM,PORCINE 5,000 UNIT/ML 1 ML VIAL SQ SCH ×2 (17:05→23:33)
[2018-11-14] MEDS ORDERED: METOCLOPRAMIDE 5 MG/ML 2 ML VIAL IVP PRN (18:43)
[2018-11-14] MEDS: FAMOTIDINE 20 MG TAB PO SCH (20:54)
[2018-11-15] MEDS: HYDROmorphone 1 MG/ML 1 ML SYRINGE IVP PRN (03:14)
[2018-11-15] MEDS: D5-0.45% NACL WITH KCL 20MEQ/L 1,000 ML IV SCH ×4 (03:20→23:35)
[2018-11-15] MEDS: KETOROLAC 30 MG/ML 1 ML VIAL IVP SCH ×3 (06:25→14:47)
[2018-11-15] MEDS: LACTATED RINGERS 1,000 ML IV SCH (06:25)
[2018-11-15 07:49] LABS: Calcium 8.4 mg/dL (8.4-10.2); Potassium 5.1 mmol/L (3.5-5.1)
[2018-11-15 08:01] LABS: Basophils % (A) 0 %; Eosinophils % (A) 0 %; Lymphocytes # (A) 1.9 k/uL (1.0-4.8); Lymphocytes % (A) 10 %; MCH 27.1 pg (25.0-35.0); MCHC 32.5 g/dL (31.0-37.0); MCV 83.5 fL (80.0-100.0); Mean Platelet Volume 7.8; Monocytes # (A) 1.2 k/uL (0-1.0); Monocytes % (A) 6 %; Neutrophils # (A) 16.2 k/uL (1.3-7.7); Neutrophils % (A) 83 %; Platelet Count 392 k/uL (150-450); RBC 3.59 m/uL (3.80-5.40); RDW 14.4 % (11.5-15.5); WBC 19.5 k/uL (3.8-10.6)
[2018-11-15 08:05] LABS: HGB 9.7 gm/dL (11.4-16.0)
[2018-11-15] MEDS: FAMOTIDINE 20 MG TAB PO SCH ×2 (09:02→19:58)
[2018-11-15] MEDS: HEPARIN SODIUM,PORCINE 5,000 UNIT/ML 1 ML VIAL SQ SCH ×3 (09:03→23:28)
--- NOTE | 2018-11-15 13:03 | P.PN ---
<RasheedaGeno Jacky - Last Filed: 11/15/18 12:55> Subjective Progress Note Date: 11/15/18 HISTORY OF PRESENT ILLNESS: 43-year-old female who underwent repair of incarcerated ventral hernia, small bowel resection, and biopsy of mesenteric nodules [address] Perdue. POD #1. Patient examined this morning. She is sitting at the side of the bed. She reports her pain is tolerable. She is passing small amounts of flatus. Tolerating clear liquid diet. Voiding without difficulty. WBC is 19.5. Afebrile. Vital signs stable. Patient is anxious regarding timing of discharge. She states she has 3 young children at home and is currently and has been pumping and dumping since being in the hospital. PHYSICAL EXAM: VITAL SIGNS: Reviewed. GENERAL: Well-developed in no acute distress. HEENT: No sclera icterus. Extraocular movements grossly intact. Moist buccal mucosa. Head is atraumatic, normocephalic. ABDOMEN: Soft. Nondistended. Positive bowel sounds. Incision clean dry and intact without drainage. NEUROLOGIC: Alert and oriented. Cranial nerves II through XII grossly intact. ASSESSMENT: 1. S/P repair of incarcerated ventral hernia, small bowel resection, and biopsy of mesenteric nodules 2, POD #1 2. Leukocytosis PLAN: 1. Continue clear liquid diet. 2. Pain control 3. Activity as tolerated. Patient encouraged to ambulate in the hallways 4. Incentive spirometry 5. Monitor WBC. Repeat in AM 6. Await pathology 7. No discharge today Nurse practitioner note has been reviewed by physician. Signing provider agrees with the documented findings, assessment, and plan of care. Objective - Vital Signs Vital signs: Vital Signs Temp 97.6 F 11/15/18 12:09 Pulse 86 11/15/18 12:09 Resp 16 11/15/18 12:09 BP 118/79 11/15/18 12:09 Pulse Ox 97 11/15/18 12:09 Intake & Output 11/14/18 11/15/18 11/15/18 18:59 06:59 18:59 Intake Total 1750 720 Output Total 110 Balance 1640 720 Intake: IV 1550 Oral 200 720 Output: Urine 100 Estimated Blood Loss 10 Other: # Voids 1 1 3 - Labs CBC & Chem 7: 11/15/18 07:20 11/15/18 07:20 Labs: Abnormal Lab Results - Last 24 Hours (Table) 11/15/18 11/15/18 Range/Units 07:20 07:20 WBC 19.5 H (3.8-10.6) k/uL RBC 3.59 L (3.80-5.40) m/uL Hgb 9.7 L D (11.4-16.0) gm/dL Hct 30.0 L (34.0-46.0) % Neutrophils # 16.2 H (1.3-7.7) k/uL Monocytes # 1.2 H (0-1.0) k/uL Sodium 132 L (137-145) mmol/L Glucose 132 H (74-99) mg/dL <Yared Perdue - Last Filed: 11/15/18 13:52> Subjective as above. Patient doing fairly well. She was hoping to go home today. White blood cell count is slightly elevated however. She was mildly tachycardic although that is improved. We'll repeat CBC tomorrow. Gradually advance diet. Probable discharge tomorrow. Await final pathology. Objective - Vital Signs Vital signs: Vital Signs Temp 97.6 F 11/15/18 12:09 Pulse 86 11/15/18 12:09 Resp 16 11/15/18 12:09 BP 118/79 11/15/18 12:09 Pulse Ox 97 11/15/18 12:09 Intake & Output 11/14/18 11/15/18 11/15/18 18:59 06:59 18:59 Intake Total 1750 720 Output Total 110 Balance 1640 720 Intake: IV 1550 Oral 200 720 Output: Urine 100 Estimated Blood Loss 10 Other: # Voids 1 1 3 - Labs CBC & Chem 7: 11/15/18 07:20 11/15/18 07:20 Labs: Abnormal Lab Results - Last 24 Hours (Table) 11/15/18 11/15/18 Range/Units 07:20 07:20 WBC 19.5 H (3.8-10.6) k/uL RBC 3.59 L (3.80-5.40) m/uL Hgb 9.7 L D (11.4-16.0) gm/dL Hct 30.0 L (34.0-46.0) % Neutrophils # 16.2 H (1.3-7.7) k/uL Monocytes # 1.2 H (0-1.0) k/uL Sodium 132 L (137-145) mmol/L Glucose 132 H (74-99) mg/dL Assessment and Plan (1) Umbilical hernia, incarcerated Current Visit: Yes Status: Acute Code(s): K42.0 - UMBILICAL HERNIA WITH OBSTRUCTION, WITHOUT GANGRENE SNOMED Code(s): 132809597
[2018-11-15] MEDS: HYDROcodone/APAP 5-325MG 1 EACH TAB PO PRN ×3 (13:35→23:30)
[2018-11-15 16:11] VITALS: RESP 18
[2018-11-16 07:45] VITALS: BP 136/82; PULSE 94; TEMP 97.2
[2018-11-16] MEDS ORDERED: IBUPROFEN 600 MG TAB PO PRN (07:52)
[2018-11-16 07:59] LABS: Basophils % (A) 0 %; Eosinophils # (A) 0.2 k/uL (0-0.7); Eosinophils % (A) 2 %; HGB 8.4 gm/dL (11.4-16.0); Lymphocytes # (A) 3.3 k/uL (1.0-4.8); Lymphocytes % (A) 30 %; MCH 28.2 pg (25.0-35.0); MCHC 33.6 g/dL (31.0-37.0); MCV 83.8 fL (80.0-100.0); Mean Platelet Volume 7.3; Monocytes # (A) 0.6 k/uL (0-1.0); Monocytes % (A) 5 %; Neutrophils # (A) 6.6 k/uL (1.3-7.7); Neutrophils % (A) 61 %; Platelet Count 294 k/uL (150-450); RBC 2.98 m/uL (3.80-5.40); RDW 14.6 % (11.5-15.5); WBC 10.8 k/uL (3.8-10.6)
[2018-11-16] MEDS: FAMOTIDINE 20 MG TAB PO SCH (08:18)
[2018-11-16 08:19] LABS: Calcium 8.7 mg/dL (8.4-10.2); Potassium 4.6 mmol/L (3.5-5.1)
[2018-11-16] MEDS: HEPARIN SODIUM,PORCINE 5,000 UNIT/ML 1 ML VIAL SQ SCH (08:21)
--- NOTE | 2018-11-16 12:32 | P.DS ---
Providers Date of admission: 11/14/18 11:51 Expected date of discharge: 11/16/18 Attending physician: Yared Perdue Primary care physician: Stated None Hospital Course: 43-year-old female who underwent repair of incarcerated ventral hernia, small bowel resection, and biopsy of mesenteric nodules [address] Perdue. Patient doing well postoperatively without any immediate complications. Patient had leukocytosis with a white count of 19.5 on postop day 1, postop day 2 white count is 10.8. Patient has been afebrile. Hemoglobin 8.4, down from 9.7. Preop hemoglobin 12.6. Patient remains hemodynamically stable. Patient tolerating diet without nausea or vomiting. Voiding without difficulty. Pain controlled with oral medications. She is stable for discharge home today. Patient to have CBC repeated on Monday11/19/18. Please see EMR for further hospital course details. Discharge Diagnosis: 1. S/P repair of incarcerated ventral hernia, small bowel resection, and biopsy of mesenteric nodules 2 2. Leukocytosis, resolved 3. Acute blood loss anemia Nurse practitioner note has been reviewed by physician. Signing provider agrees with the documented findings, assessment, and plan of care. Plan - Discharge Summary Discharge Rx Participant: Yes New Discharge Prescriptions: New HYDROcodone/APAP 5-325MG [[place] 5-325] 1 tab PO Q6HR PRN 3 Days #12 tab PRN Reason: Pain No Action Pnv,Calcium 72/Iron/Folic Acid [Pnv Plus Multivit Tab] 1 tab PO DAILY Discharge Medication List Pnv,Calcium 72/Iron/Folic Acid [Pnv Plus Multivit Tab] 1 tab PO DAILY 06/13/15 [History] HYDROcodone/APAP 5-325MG [[place] 5-325] 1 tab PO Q6HR PRN 3 Days #12 tab 11/16/18 [Rx] Follow up Appointment(s)/Referral(s): Yared Perdue MD [Medical Doctor] - 11/21/18 1:40 pm Ambulatory/Diagnostic Orders: Complete Blood Count w/diff [LAB.AMB] Time Frame: 11/19/18, Location: None Selected Activity/Diet/Wound Care/Special Instructions: No driving while taking [place] No lifting over 10 pounds You may shower. No soaking or tub baths Very light activity until you are reevaluated at your follow up appointment with your surgeon call for any problems or concerns or worsening symptoms Discharge Disposition: HOME SELF-CARE
== END 2018-11-16 11:10 | disposition home or self-care (01) | DRG 330 ==
LOC: OR 09:16 → 6PED 11:51 → OR 12:55 → 6PED 11-15 13:50
PROVIDERS: ADMIT Surgery; ATTEND Surgery
PROC: 0WQF0ZZ Repair Abdominal Wall, Open Approach (ICD-10-PCS; 2018-11-14)
PROC: 0DBV0ZX Excision of Mesentery, Open Approach, Diagnostic (ICD-10-PCS; 2018-11-14)
PROC: 0DB80ZZ Excision of Small Intestine, Open Approach (ICD-10-PCS; principal; 2018-11-14 10:30)
DX: K43.6 Other and unspecified ventral hernia with obstruction, without gangrene (principal); D62 Acute posthemorrhagic anemia; Z68.41 Body mass index [BMI] 40.0-44.9, adult; D49.0 Neoplasm of unspecified behavior of digestive system; D72.829 Elevated white blood cell count, unspecified; R00.0 Tachycardia, unspecified; K63.9 Disease of intestine, unspecified; E66.9 Obesity, unspecified; Z79.899 Other long term (current) drug therapy; Z87.891 Personal history of nicotine dependence
CPT/HCPCS: 80048; 85025; 88302; 88305; 88309; 88341; 88342

== ENCOUNTER → 2018-11-19 | Outpatient (CLI) | payer OTHER ==
[2018-11-19 15:33] LABS: Basophils # (A) 0.1 k/uL (0-0.2); Basophils % (A) 0 %; Eosinophils # (A) 0.3 k/uL (0-0.7); Eosinophils % (A) 2 %; HCT 33.4 % (34.0-46.0); HGB 11.2 gm/dL (11.4-16.0); Lymphocytes # (A) 2.8 k/uL (1.0-4.8); Lymphocytes % (A) 20 %; MCH 27.4 pg (25.0-35.0); MCHC 33.4 g/dL (31.0-37.0); MCV 82.1 fL (80.0-100.0); Mean Platelet Volume 7.7; Monocytes # (A) 0.9 k/uL (0-1.0); Monocytes % (A) 6 %; Neutrophils % (A) 70 %; Platelet Count 489 k/uL (150-450); RBC 4.07 m/uL (3.80-5.40); RDW 15.1 % (11.5-15.5); WBC 14.2 k/uL (3.8-10.6)
== END ==
LOC: LABWHC1 13:55
PROVIDERS: ATTEND Nurse Practitioner
DX: D64.9 Anemia, unspecified (principal)
CPT/HCPCS: 36415; 85025

== ENCOUNTER → 2018-12-05 | Outpatient (CLI) | payer OTHER ==
--- NOTE | 2018-12-05 17:02 | CT ---
EXAMINATION TYPE: CT ChestAbdPelvis w con DATE OF EXAM: 12/05/2018 INDICATION: malignant tumor found during colonoscopy, c/o RLQ pain COMPARISON: None CT DLP: 2305.9 mGycm CONTRAST: Performed with Oral Contrast and with IV Contrast, patient injected with 100 mL of Isovue 300. TECHNIQUE: Axial images at 5 mm thick sections. Reconstructed images in the coronal plane. Delayed images through the kidneys. FINDINGS: CT CHEST: Portion of the thyroid visualized is normal. No suspicious lung nodules or focal infiltrates are present. No enlarged mediastinal or hilar adenopathy is evident. The ascending aorta diameter at the level of the main pulmonary artery is 3.2 cm. The main pulmonary artery diameter at the bifurcation is 2.[address] ABDOMEN: There is a large hypodense dense collection within the anterior subcutaneous tissues hakan uring 5.8 x 7.8 cm. Large hematoma or seroma is suspected in the infra umbilical region. Abscess woul d be less likely. Liver: Normal Spleen: Normal Pancreas: Normal Adrenal glands: The adrenal glands are normal. Gallbladder: Normal Kidneys: No masses are evident. No hydronephrosis is present. No cysts are present. Delayed images were obtained through the kidneys, which remain unremarkable. Aorta: Vascular calcification is within the aorta. Inferior vena cava: Normal. CT PELVIS: Loops of bowel within the abdomen and pelvis are normal. There are loops of bowel which are incom pletely distended or lack oral contrast limiting their evaluation. The cecum appears to have incomple te distention. Underlying mass at this level should be considered. Some adjacent thickening may be pr esent as well. Mild inflammatory change may be adjacent to the cecum. There is some exophytic hypoden se area similar to the suspected hematoma within the subcutaneous tissues adjacent to the cecum. This area measures 3.3 x 2.5 cm in size within the pelvis. Series 3 image 88. Free fluid within the pelvi s is not identified. Appendix: Not well visualized. What appears to be the appendix has a normal caliber without adjacent inflammatory change. Urinary bladder: Normal. Genitourinary structures: Uterus is unremarkable. Adnexal regions are clear. Osseous structures: No suspicious lytic or sclerotic lesions. IMPRESSIONS: 1. Diffuse thickening through the region of the cecum with some mild adjacent inflammatory change. 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 2. No evidence of obstruction. 3. Suspected hematoma within the subcutaneous tissues of the infra umbilical region. Small amount of hematoma, or fluid adjacent to the distal colon may be present. Abscess should be considered.
== END | disposition home or self-care (01) ==
LOC: RADCTMAIN 14:18
PROVIDERS: ATTEND Internal Medicine Hematology & Oncology
DX: K36 Other appendicitis (principal); C7A.012 Malignant carcinoid tumor of the ileum
CPT/HCPCS: 71260; 74177; Q9967

== ENCOUNTER → 2018-12-12 | Outpatient (CLI) | payer OTHER | END | disposition home or self-care (01) | LOC: LABWHC1 12:41 | PROVIDERS: ATTEND Internal Medicine Hematology & Oncology | CPT/HCPCS: 83497 ==